=== PATIENT | female | born 1990 | race Caucasian/White ===

== ENCOUNTER 2017-03-07 06:27 | Inpatient (IN) | payer MEDICAID ==
[2017-03-07] MEDS ORDERED: METHYLERGONOVINE 0.2 MG INJ IM ×2 (07:00→21:30)
[2017-03-07] MEDS ORDERED: IBUPROFEN 600 MG TAB PO (07:00)
[2017-03-07] MEDS ORDERED: LIDOCAINE 1% (MPF) 30 ML INJ INJ (07:00)
[2017-03-07] MEDS ORDERED: OXYTOCIN 30 UNITS/LR 500 ML IV ×4 (07:00→21:30)
[2017-03-07] MEDS ORDERED: OXYCODONE/ASPIRIN (4.88/325) TAB PO (07:00)
[2017-03-07] MEDS ORDERED: CARBOPROST 250 MCG INJ IM ×2 (07:00→21:30)
[2017-03-07] MEDS ORDERED: MISOPROSTOL 200 MCG TAB PR ×2 (07:00→21:30)
[2017-03-07] MEDS: LACTATED RINGER'S 1,000 ML IV ×3 (07:08→21:01)
[2017-03-07 08:10] LABS: ADD MAN DIFF? NO
[2017-03-07 08:17] LABS: BASOPHILS % 0.4 % (0.0-2.0); EOSINOPHILS # 0.1 10^3/ul (0.0-0.5); EOSINOPHILS % 0.8 % (0.0-7.0); HEMATOCRIT 37.3 % (37.0-47.0); HEMOGLOBIN 12.8 g/dl (12.0-16.0); LYMPHOCYTES # 1.7 10^3/ul (0.8-2.9); LYMPHOCYTES % 21.7 % (15.0-51.0); MEAN CORPUSCULAR HEMOGLOBIN 30.6 pg (29.0-33.0); MEAN CORPUSCULAR HGB CONC 34.3 g/dl (32.0-37.0); MEAN CORPUSCULAR VOLUME 89.2 fl (82.0-101.0); MEAN PLATELET VOLUME 11.9 fl (7.4-10.4); MONOCYTE # 0.6 10^3/ul (0.3-0.9); MONOCYTES % 7.9 % (0.0-11.0); NEUTROPHIL # 5.5 10^3/ul (1.6-7.5); NEUTROPHILS % 68.6 % (39.0-77.0); PLATELET COUNT 219 10^3/UL (140-415); RED BLOOD COUNT 4.18 10^6/ul (4.20-5.40); RED CELL DISTRIBUTION WIDTH 13.1 % (11.5-14.5)
[2017-03-07 08:36] LABS: INR 0.89; PROTIME 12.1 Sec (11.9-14.9); PT RATIO 0.9
[2017-03-07 08:37] LABS: PARTIAL THROMBOPLASTIN TIME 28.1 Sec (25.0-35.0)
[2017-03-07 09:07] LABS: HEPATITIS B SURFACE ANTIGEN NEGATIVE (NEGATIVE)
[2017-03-07] MEDS: OXYTOCIN 30 UNITS/LR 500 ML IV ×4 (09:16→23:03)
[2017-03-07] MEDS ORDERED: AMPICILLIN 2 GM/NS (PMX) 100 ML (09:30)
[2017-03-07] MEDS: AMPICILLIN 2 GM/NS (PMX) 100 ML IVPB (10:15)
[2017-03-07] MEDS: BUTORPHANOL 2 MG INJ IV (13:15)
[2017-03-07] MEDS: AMPICILLIN 1 GM/NS (PMX) 50 ML IVPB ×2 (13:15→17:00)
[2017-03-07 15:01] LABS: RAPID PLASMA REAGIN NONREACTIVE (NR)
[2017-03-07] MEDS ORDERED: CEFAZOLIN 2 GM/50 ML (PMX) 50 ML IVPB (15:55)
[2017-03-07] MEDS ORDERED: EPHEDrine SULFATE 50 MG/5 ML SYG (16:09)
[2017-03-07] MEDS ORDERED: morphine SULFATE/PF (10 MG/10 ML) INJ (16:09)
[2017-03-07] MEDS ORDERED: OXYTOCIN 10 UNIT INJ ×2 (16:09→16:39)
[2017-03-07] MEDS ORDERED: METOCLOPRAMIDE 10 MG INJ (16:09)
[2017-03-07] MEDS ORDERED: ONDANSETRON 4 MG INJ (16:09)
[2017-03-07] MEDS: CEFAZOLIN 2 GM/50 ML (PMX) 50 ML IVPB (16:15)
[2017-03-07] MEDS ORDERED: DIPHENHYDRAMINE 50 MG INJ IV (17:00)
[2017-03-07] MEDS ORDERED: morphine SULFATE/PF (10 MG/10 ML) INJ SPINAL (17:00)
[2017-03-07] MEDS ORDERED: ONDANSETRON 4 MG INJ IV (17:00)
[2017-03-07] MEDS ORDERED: NALOXONE (0.4 MG/ML) INJ IV (17:00)
[2017-03-07] MEDS ORDERED: morphine 4 MG/ML VIAL IV (17:00)
[2017-03-07] MEDS ORDERED: morphine 2 MG INJ IV (17:00)
[2017-03-07] MEDS ORDERED: EPHEDrine SULFATE 50 MG/5 ML SYG IV (17:00)
[2017-03-07] MEDS ORDERED: NACL 0.9% 3 ML SYG IV (21:30)
[2017-03-07] MEDS ORDERED: HYDROCODONE/APAP (5/325) TAB PO (21:30)
[2017-03-07] MEDS ORDERED: NA PHOSPHATE/BIPHOS 133 ML ENEMA PR (21:30)
[2017-03-08] MEDS: LACTATED RINGER'S 1,000 ML IV ×2 (05:01→09:04)
[2017-03-08] MEDS: LANOLIN 7 GM TUBE TOP (06:16)
[2017-03-08] MEDS: KETOROLAC 30 MG INJ IV (08:01)
[2017-03-08 09:25] LABS: ADD MAN DIFF? NO
[2017-03-08 09:35] LABS: BASOPHILS % 0.3 % (0.0-2.0); HEMATOCRIT 29.5 % (37.0-47.0); HEMOGLOBIN 10.3 g/dl (12.0-16.0); LYMPHOCYTES # 1.3 10^3/ul (0.8-2.9); LYMPHOCYTES % 11.3 % (15.0-51.0); MEAN CORPUSCULAR HEMOGLOBIN 31.6 pg (29.0-33.0); MEAN CORPUSCULAR HGB CONC 34.9 g/dl (32.0-37.0); MEAN CORPUSCULAR VOLUME 90.5 fl (82.0-101.0); MEAN PLATELET VOLUME 11.7 fl (7.4-10.4); MONOCYTE # 0.8 10^3/ul (0.3-0.9); MONOCYTES % 6.8 % (0.0-11.0); NEUTROPHIL # 9.5 10^3/ul (1.6-7.5); NEUTROPHILS % 81.1 % (39.0-77.0); PLATELET COUNT 169 10^3/UL (140-415); RED BLOOD COUNT 3.26 10^6/ul (4.20-5.40); RED CELL DISTRIBUTION WIDTH 13.3 % (11.5-14.5)
[2017-03-08 09:35] LABS: WHITE BLOOD COUNT 11.7 10^3/ul (4.8-10.8)
[2017-03-08] MEDS: IBUPROFEN 800 MG TAB PO (21:36)
[2017-03-09] MEDS: IBUPROFEN 800 MG TAB PO ×3 (05:38→22:12)
[2017-03-09] MEDS: INFLUENZA VIRUS VACCINE 0.5 ML (DISPENSING) IM* (09:00)
[2017-03-10] MEDS: IBUPROFEN 800 MG TAB PO ×2 (05:51→15:49)
[2017-03-10] MEDS: MEASLES,MUMPS,RUBELLA VACCINE INJ SC* (09:00)
[2017-03-10] MEDS: DIPHTH/TET/ACEL PERTUSS (ADULT) 0.5 ML VIAL IM* (15:57)
== END 2017-03-10 17:30 | disposition home or self-care (01) | DRG 766 ==
LOC: L-D 06:27 → PP1 20:33
PROVIDERS: Obstetrics & Gynecology
PROC: 10D00Z1 Extraction of Products of Conception, Low, Open Approach (ICD-10-PCS; principal; 2017-03-07 06:00)
PROC: 3E033VJ Introduction of Other Hormone into Peripheral Vein, Percutaneous Approach (ICD-10-PCS; 2017-03-07 06:00)
DX: O62.0 Primary inadequate contractions (principal); E66.9 Obesity, unspecified; O48.0 Post-term pregnancy; Z3A.40 40 weeks gestation of pregnancy; O99.214 Obesity complicating childbirth; Z68.34 Body mass index [BMI] 34.0-34.9, adult; O76 Abnormality in fetal heart rate and rhythm complicating labor and delivery; O33.9 Maternal care for disproportion, unspecified; Z37.0 Single live birth
CPT/HCPCS: 85025; 85610; 85730; 86592; 86900; 86901; 87340; 90686; 90715; 94760; 99464